=== PATIENT | male | born 1985 | race Caucasian/White ===

== ENCOUNTER 2022-07-13 13:54 | Emergency (ER) | payer OTHER, SELFPAY ==
--- NOTE | 2022-07-13 14:14 | ECG_ITS ---
Test Reason : overdose Blood Pressure : / mmHG Vent. Rate : 090 BPM Atrial Rate : 090 BPM P-R Int : 180 ms QRS Dur : 104 ms QT Int : 418 ms P-R-T Axes : 065 028 057 degrees QTc Int : 511 ms Normal sinus rhythm Prolonged QT Abnormal ECG No previous ECGs available Referred By: Ann Marrero Electronically Signed By:SHELLY PAPPAS
--- NOTE | 2022-07-13 14:16 | ED.ALLEREA ---
HPI - Allergic Reaction General Chief complaint: Overdose Stated complaint: FOUND UNRESP IN ALLEY,? OD,NARCAN GIVEN W/GOOD RES Time Seen by Provider: 07/13/22 14:13 History of Present Illness HPI narrative: PATIENT IS A 36-YEAR-OLD MALE PRESENTED TODAY WITH HAVING FOUND UNCONSCIOUS THE BACK OF AN ALLEY WITH DECREASED RESPIRATORY RATE PINPOINT PUPILS. PATIENT WAS GIVEN 8 OF NARCAN PRIOR TO EMS ARRIVAL. WOKE UP ON EMS ARRIVAL PATIENT WAS AWAKE ALERT ANSWERING QUESTIONS. GRADUALLY BECAME LESS RESPONSIVE. PATIENT ADMITS TO USING SOME PILLS. HE IS UNSURE WHAT IT IS. HE HAS A BOTTLES OF IT. SON SURE TO WHEN HE TOOK IT. HE DID TAKE IT FOR RECREATIONAL REASONS. HE DENIES ANY SUICIDAL HOMICIDAL IDEATIONS. Patient denies any fever chills coughing congestion upper respiratory symptoms. Patient is not vaccinated. Patient is from [employer] Related Data Allergies Allergy/AdvReac Type Severity Reaction Status Date / Time levetiracetam [From [facility]] Allergy Unknown Unknown Verified 07/13/22 14:14 Review of Systems Review of Systems: Unable to obtain full review systems secondary to patient condition [facility] Past Medical History Attestation statement: The following information was validated with the patient. Physical Exam ED Vital Signs: Vital Signs - 24 hr 07/13/22 14:18 Pulse Rate 90 Respiratory Rate 20 Blood Pressure 139/83 Pulse Oximetry 98 Oxygen Delivery Method Room Air BMI result Body Mass Index 29.8 Appearance: Lethargic but arousable Eyes: Pupils equal, round and reactive to light. ENT: Pharynx normal. Neck: Normal inspection. Neck supple. No lymph nodes noted. No crepitus CVS: Normal heart rate and rhythm. Pulses normal. Normal S1 and S2 Respiratory: No respiratory distress. Breath sounds normal. No Wheezing. No rales Abdomen: Soft and nontender. No rigidity. No distention. good BS x4 Skin: Skin warm and dry. Normal skin color. Normal skin turgor. Extremities: No lower extremity edema. Neurovascular intact to all extremities. No Lacerations. No Rash Neuro: Oriented X 3. No motor deficit. No sensory deficit. Moving all extermities. No slurred speech MDM - Allergic Reaction MDM Narrative Medical decision making narrative: The bottle of pills contain 4 different types of pills-tablets. There was 1 capsule that screen. Not marked. Unable to identify what that was. To the tablets were identified as gabapentin 800 mg. There is 1 additional round tablets that was noted. It was identified as Seroquel 200 mg. We are going to get an EKG will monitor patient carefully. We will get labs. Give IV fluids. EKG SHOWS A SINUS PATTERN HEART RATE IS THE SD URINE WITHIN NORMAL LIMITS. QT was prolonged. Patient did not want stay in the hospital. Understood the risks including . I offered laboratory an observation patient refused. Understood that the Narcan can wear off in approximately 30 minutes. Patient is now awake alert oriented. Answering questions appropriately. Ambulating with normal gait. Patient given A States applied Narcan kit. Left against medical advice. Patient refused all paperwork. Is in a hurry to leave. Discharge Plan Discharge Clinical Impression: Drug overdose Patient Disposition: Left Against Medical Advice Instructions: Adult Overdose (ED)
[2022-07-13 14:18] VITALS: BP 139/83; BP 160/100; PULSE 90; PULSE 98; RESP 20; O2SAT 98; BMI 29.8
--- NOTE | 2022-07-13 14:37 | PC.NURSE ---
per security, pt does not need to have belongings taken to [facility] since its pills . pt belongings left at bedside at this time. items checked for contraband by security.
--- NOTE | 2022-07-13 14:45 | PC.NURSE ---
pt suddenly awake when approached for blood work. refusing, sts he would like to just leave. provider aware, brought to bedside to speak with pt. pt denies substance use, rr even unlabored, ambulating w smooth steady gait. denies si/hi. belongings given back to pt, bus passes given. pt bottle of kratom appears to have been accidentally placed in [employer] waste receptacle.
[2022-07-13] MEDS: Naloxone HCl Nasal TAKE HOME 4 MG SPRAY NOSTRILALT (15:55)
== END 2022-07-13 15:58 | disposition left against medical advice (07) ==
PROVIDERS: Emergency Provider Emergency Medicine Emergency Medical Services
DX: T50.911A Poisoning by multiple unspecified drugs, medicaments and biological substances, accidental (unintentional), initial encounter (principal); R40.4 Transient alteration of awareness; Y92.488 Other paved roadways as the place of occurrence of the external cause
CPT/HCPCS: 93005; 99283